=== PATIENT | male | born 1980 | race Caucasian/White ===

== ENCOUNTER 2017-01-10 20:38 | Emergency (ER) | payer BC, OTHER ==
[~2017-01-10] VITALS: Ht 177.8 cm; Wt 97.5 kg
--- NOTE | ~2017-01-10 | EKG ---
[place] [address] [facility] [place] [address] ELECTROCARDIOGRAM REPORT Name: MOON MOELLER Room #: DEP [facility] [id number] Admission: 01/10/17 Attend Phys: Discharge: 01/10/17 Date of : 84 Report #: [id number] THIS REPORT FOR: //name// [facility] ED Test Date: 2017-01-10 Test Time: 21:05:01 Pat Name: MOON MOELLER Department: Room: Gender: [employer] Supply Specialist: JIMENEZ : 1980 Requested By: Emely Mares Order Number: [id number] MD: Zach Anne Measurements Intervals [place] Rate: 73 P: 56 OK: 158 QRS: 6 QRSD: 92 T: 3 QT: 368 QTc: 406 Interpretive Statements Sinus rhythm Multiple premature complexes, vent & supraven No previous ECG available for comparison Electronically Signed On 01-11-2017 17:05:03 CDT by Zach Anne [email or web address] <ELECTRONICALLY SIGNED> By: Zach Anne MD 01/11/17 1705 [id number] MD KAIN Link
[2017-01-10] MEDS ORDERED: TOPROL XL25 MG PO (20:52)
[2017-01-10 21:17] LABS: ABSOLUTE NEUTROPHILS 5.2 thou/uL (1.4-8.2); BASOPHILS 0.8 % (0.0-2.0); EOSINOPHILS 1.7 % (0.0-3.0); HEMATOCRIT 47.5 % (42.0-52.0); HEMOGLOBIN 16.1 gm/dL (14.0-18.0); LYMPHOCYTES 33.3 % (24.0-44.0); MCH 30.6 pg (26.0-34.0); MCHC 33.8 g/dL (28.0-37.0); MCV 90.5 fL (80.0-100.0); PLATELET COUNT 191 thou/uL (150-400); POLYS 59.2 % (36.0-66.0); RBC 5.25 mil/uL (4.50-6.00); RDW 13.7 % (10.5-14.5); WBC 8.7 thou/uL (4.0-11.0)
[2017-01-10 21:21] LABS: ANION GAP 10 mmol/L (7-16); BUN 18 mg/dL (7-18); CALCIUM 9.7 mg/dL (8.5-10.1); CHLORIDE 105 mmol/L (98-107); CO2 26 mmol/L (21-32); CREATININE 1.1 mg/dL (0.7-1.3); GLUCOSE 94 mg/dL (74-106); POTASSIUM 3.7 mmol/L (3.5-5.1); SODIUM 141 mmol/L (136-145)
[2017-01-10 21:23] LABS: MANUAL DIFF NO
[2017-01-10 21:27] VITALS: BP 142/99
[2017-01-10 21:29] LABS: TROPONIN-I < 0.04 ng/mL (<0.04-0.07)
[2017-01-10] MEDS ORDERED: CLONIDINE0.1 PO (21:36)
[2017-01-10] MEDS ORDERED: TOPROL XL50 MG PO (21:41)
== END 2017-01-10 21:08 | disposition home or self-care (01) ==
LOC: ER 20:38
PROVIDERS: Emergency Medicine
DX: I10 Essential (primary) hypertension (principal); T44.7X5A Adverse effect of beta-adrenoreceptor antagonists, initial encounter; F41.9 Anxiety disorder, unspecified; Y92.89 Other specified places as the place of occurrence of the external cause